=== PATIENT | male | born 1980 | race Caucasian/White ===

== ENCOUNTER 2019-11-20 12:20 | Outpatient (CLI) | payer BC ==
--- NOTE | 2019-11-20 12:45 | RAD ---
TWO VIEWS CHEST: DATE: 11/20/2019. PROVIDED CLINICAL HISTORY: Midsternal lump. FINDINGS: Cardiac and mediastinal silhouette is within normal limits. No focal consolidation, pleural fluid, o r pneumothorax apparent. The area of interest is marked on the lateral view with a metallic B-B, and the subjacent soft tissues demonstrate a normal radiographic appearance. IMPRESSION: 1. No evidence for an acute cardiopulmonary process. 2. No radiographic abnormality is evident in the region of palpable concern. If there is persistent clinical concern, consider CT or MRI. POS: [facility]
== END 2019-11-20 12:21 | disposition home or self-care (01) ==
LOC: SCSRAD 12:20
PROVIDERS: ATTEND Family Medicine
DX: R22.2 Localized swelling, mass and lump, trunk (principal)
CPT/HCPCS: 71046